=== PATIENT | male | born 1980 | race Caucasian/White ===

== ENCOUNTER → 2023-01-13 09:06 | Outpatient (BNVA) | payer MEDICAID, SELFPAY | PROVIDERS: Visit Provider Emergency Medicine | DX: S90.02XA Contusion of left ankle, initial encounter (principal); X58.XXXA Exposure to other specified factors, initial encounter | CPT/HCPCS: 73610 ==

== ENCOUNTER → 2023-02-21 10:21 | Outpatient (BNVA) | payer MEDICAID, SELFPAY | PROVIDERS: Visit Provider Nurse Practitioner Family | DX: R35.89 Other polyuria (principal); R63.1 Polydipsia; R63.2 Polyphagia; Z11.9 Encounter for screening for infectious and parasitic diseases, unspecified; R10.12 Left upper quadrant pain; R63.4 Abnormal weight loss | CPT/HCPCS: 80053; 82962; 83690; 85025; 87177; 87209 ==

== ENCOUNTER 2023-06-24 11:37 | Emergency (ER) | payer MEDICAID, SELFPAY ==
[2023-06-24 11:41] VITALS: BP 139/97; PULSE 77; RESP 16; TEMP 36.9; O2SAT 96; BMI 22.3
--- NOTE | 2023-06-24 11:55 | W.ED.PSYCHS ---
HPI - Psych General: Chief Complaint: Psychiatric Symptoms Stated Complaint: MHE Time Seen by Provider: 06/24/23 11:42 History of Present Illness: 43-year-old male presents emergency department with complaints of feeling extremely depressed with intermittent feelings of extreme anger. He states that he recently became involved with a significant other who has a children and although he cares about her very much he seems to be very stressed he does have a history of mental health disorder but takes no medications at present. He states his family has encouraged him to come to the emergency department for evaluation and to seek additional treatment or potential medication to help control his feelings of being angry. He states he does not want to harm himself or anyone else. He has no thoughts of suicidal ideation. He states that he was incarcerated in care home until approximately 1 year ago. He denies dizziness or lightheaded feeling or chest pain. He states that he became very upset approximately 2 days ago and said in his head that he was so angry that he felt like killing someone, but did not follow-up on that or attempt to and could not identify any particular person that was the direct focus of his anger and agitation. He states that he feels his feeling depressed and being angry is causing him difficulty with his current family situation. He does appear to be very anxious and potentially hypomanic at present. Associated symptoms: Reports depression Review of Systems General: Reports: 10 or more systems reviewed and unremarkable except in HPI and below Psych: Reports: anxiety, depression and mood swings [facility] ED PFSH: Social History Smoking and tobacco/nicotine status: current every day tobacco/nicotine user cigarettes Packs smoked per day: 1 Physical Exam Narrative: EXAM NARRATIVE: Constitutional: the patient appeared well nourished and normally developed. Vital signs as documented. HENMT: Head exam is unremarkable. Neck is without jugular venous distension, thyromegaly, or carotid bruits. Carotid upstrokes are brisk bilaterally. Eye: No scleral icterus or corneal arcus noted Resp: Lungs are clear to auscultation and percussion. Cardio: Cardiac exam reveals the PMI to be normally sized and situated. Rhythm is regular. First and second heart sounds normal. No murmurs, rubs or gallops. GI: Abdominal exam reveals normal bowel sounds, no masses, no organomegaly and no aortic enlargement. Soft, nontender to palpation. No obvious palpable masses noted. No hepatomegaly appreciated. Extremity: Extremities are non-edematous and both femoral and pedal pulses are normal. Moves all extremities well, she has sensation in all extremities. Neuro: Alert and oriented x4, person, place, time and situation. Cranial nerves II through XII are grossly intact, there is no focal neurological deficits that I can appreciate at present. Motor strength in the upper and lower extremities are equal and bilateral 5/5. Psych: Cooperative, anxious appearing, normal thought process, appropriate judgment. Skin: No lesions, rashes.. Course Vital Signs: Vital signs: Vital Signs Temperature 98.4 F 06/24/23 11:41 Pulse Rate 91 06/24/23 13:26 Respiratory Rate 16 06/24/23 12:26 Blood Pressure 180/88 06/24/23 13:26 Pulse Oximetry 97 06/24/23 13:26 Oxygen Delivery Me thod Room Air 06/24/23 12:26 MDM - Psych Medical Decision Making Physical exam completed and documented, laboratory evaluation reviewed, given the patient's presenting symptoms I do not feel that he is medically appropriate for inpatient placement I have contacted the crisis psychiatric intervention center and they have advised that they would see him upon discharge. I discussed this with the patient and he stated that he would immediately go there and receive their evaluation and what ever treatments they indicated on an outpatient basis. Medical Records I reviewed the patient's medical records. Lab Data I reviewed the patient's lab results. 06/24/23 12:55 06/24/23 12:55 Laboratory Results WBC 5.90 10^3/uL (3.29-11.43) 06/24/23 12:55 RBC 4.97 10^6/uL (3.85-5.65) 06/24/23 12:55 Hgb 13.90 g/dL (11.27-16.99) 06/24/23 12:55 Hct 42.7 % (37-53) 06/24/23 12:55 MCV 85.9 fl (82-101) 06/24/23 12:55 MCH 28.0 pg (27-33) 06/24/23 12:55 MCHC 32.6 g/dL (30-55) 06/24/23 12:55 RDW 13.5 % (12.1-15.1) 06/24/23 12:55 Plt Count 240 10^3/cmm (157-399) 06/24/23 12:55 MPV 9.7 fL (7.4-10.4) 06/24/23 12:55 Neut % (Auto) 64.6 % 06/24/23 12:55 Lymph % (Auto) 26.9 % 06/24/23 12:55 [place] % (Auto) 7.1 % 06/24/23 12:55 Eos % (Auto) 0.7 % 06/24/23 12:55 Baso % (Auto) 0.5 % 06/24/23 12:55 Neut # (Auto) 3.81 10^3/uL (1.8-7.7) 06/24/23 12:55 Lymph # (Auto) 1.6 10^3/uL (0.8-4.8) 06/24/23 12:55 [place] # (Auto) 0.4 10^3/uL (0.2-0.9) 06/24/23 12:55 Eos # (Auto) 0.0 10^3/uL (0.0-0.8) 06/24/23 12:55 Baso # (Auto) 0.0 10^3/uL (0.0-0.1) 06/24/23 12:55 Nucleated RBC % (auto) 0 % 06/24/23 12:55 Nucleated RBCs # 0.0 /100WBC 06/24/23 12:55 Sodium 137 mmol/L (136-145) 06/24/23 12:55 Potassium 4.0 mmol/L (3.5-5.1) 06/24/23 12:55 Chloride 100 mmol/L (98-107) 06/24/23 12:55 Carbon Dioxide 28 mmol/L (22-29) 06/24/23 12:55 Anion Gap 13.0 (5-19) 06/24/23 12:55 BUN 8 mg/dL (6-20) 06/24/23 12:55 Creatinine 0.8 mg/dL (0.7-1.2) 06/24/23 12:55 GFR Calculation 106.5 mL/min (90-130) 06/24/23 12:55 Glucose 91 mg/dL (65-115) 06/24/23 12:55 Calculated Osmolality 282 mOsm/kg (285-295) L 06/24/23 12:55 Calcium 9.3 mg/dL (8.5-10.5) 06/24/23 12:55 Total Bilirubin 0.5 mg/dL (0.15-1.2) 06/24/23 12:55 AST 26 U/L (0-40) 06/24/23 12:55 ALT 25 U/L (0-41) 06/24/23 12:55 Alkaline Phosphatase 59 U/L (40-130) 06/24/23 12:55 Total Protein 7.4 g/dL (6.6-8.7) 06/24/23 12:55 Albumin 4.8 g/dL (3.5-5.2) 06/24/23 12:55 Globulin 2.6 g/dL (1.3-4.6) 06/24/23 12:55 Urine Color Yellow (Yellow) 06/24/23 12:32 Urine Appearance Clear (CLEAR) 06/24/23 12:32 Urine pH 8 (5-7) H 06/24/23 12:32 Ur Specific [place] 1.005 (1.005-1.030) 06/24/23 12:32 Urine Protein Neg (Negative) 06/24/23 12:32 Urine Glucose (UA) Norm (Normal) 06/24/23 12:32 Urine Ketones Negative (Negative) 06/24/23 12:32 Urine Blood Neg (Negative) 06/24/23 12:32 Urine Nitrate Negative (Negative) 06/24/23 12:32 Urine Bilirubin Neg (Negative) 06/24/23 12:32 Prot Sulfosalicylic Acd Negative (Negative) 06/24/23 12:32 Urine Urobilinogen Norm mg/dL (Negative) 06/24/23 12:32 Ur Leukocyte Esterase Negative (Negative) 06/24/23 12:32 Salicylates 2.0 mg/dL (3-10) L 06/24/23 12:55 Urine Opiates Screen Negative ng/mL (Negative) 06/24/23 12:32 Acetaminophen < 5.0 ug/mL (10-30) L 06/24/23 12:55 Ur Barbiturates Screen Negative ng/mL (Negative) 06/24/23 12:32 Ur Phencyclidine Scrn Negative ng/mL (Negative) 06/24/23 12:32 Ur Amphetamines Screen Negative ng/mL (Negative) 06/24/23 12:32 U Benzodiazepines Scrn Negative ng/mL (Negative) 06/24/23 12:32 Urine Cocaine Screen Negative ng/mL (Negative) 06/24/23 12:32 U Marijuana (THC) Screen Positive ng/mL (Negative) H 06/24/23 12:32 Ethyl Alcohol < 10 mg/dL (0-10) 06/24/23 12:55 No radiology studies performed this visit Discharge Plan Discharge Patient Disposition: Home Clinical Impression: Depression, Mood and affect disturbance Condition: Stable Prescriptions: No Action No Known Home Medications Discharge Orders: Discharge ED (Routine); Ordered 06/24/23 Ordered By: Robin Chen Discharge Diet: Advance as tolerated Discharge Activity: Resume usual activity Patient Instructions: Opioid Safety, Pain Management Activity Restrictions/Additional Instructions: Activity Restrictions/Additional Instructions: Thank you for choosing [facility] for your healthcare needs today. Please realize that you were seen in the Emergency Department and that we are providing you with an emergency medical screening exam and this may not be complete and all inclusive of all the testing and or medical work-up that you may need to determine your ailment or severity of your illness. It is very important that you follow-up as instructed with your Primary care provider or Specialist for additional evaluation and to discuss your medical treatment plan. You may return to the Emergency Department should you have concerns or if your condition changes or worsens in any way. Coding Level of Care Code ED Clamp Remover for Jason Cortes
[2023-06-24 12:26] VITALS: BP 151/67; PULSE 57; RESP 16; O2SAT 98
[2023-06-24 12:36] LABS: Add Urine Microscopic? NO; Charge for UA Resulting for Rev
[2023-06-24 12:46] LABS: Amphetamines Screen Urine Negative (Negative); Barbiturates Screen Urine Negative (Negative); Benzodiazepines Screen Urine Negative (Negative); Cocaine Screen Urine Negative (Negative); Opiate Screen Urine Negative (Negative); PCP Screen Urine Negative (Negative); THC Screen Urine Positive (Negative)
--- NOTE | 2023-06-24 12:48 | ECG_ITS ---
[facility] Test Date: 2023-06-24 Pat Name: Figueroa Marie Department: Room: Gender: Male Biotechnologist: : 1980 Requested By: Robin Chen Order Number: [id number] Purvis MD: Fede Trejo M.D. Measurements Intervals [place] Rate: 56 P: 85 OR: 164 QRS: 81 QRSD: 82 T: 79 QT: 394 QTc: 382 Interpretive Statements SINUS BRADYCARDIA No previous ECG available for comparison Electronically Signed On 06-24-2023 19:37:43 CDT by Fede Trejo M.D. [id number]
[2023-06-24 12:52] LABS: Bilirubin Urine Neg (Negative); Blood Urine Neg (Negative); Glucose Urine UA Norm (Normal); Ketones Urine Negative (Negative); Leukocyte Esterase Urine Negative (Negative); Nitrate Urine Negative (Negative); Protein Urine Neg (Negative); Specific Gravity, Urine 1.005 (1.005-1.030); Sulfosalicylic Acid Urine Negative (Negative); Urine Appearance Clear (CLEAR); Urine Color Yellow (Yellow); Urobilinogen Urine Norm (Negative); pH Urine 8 (5-7)
[2023-06-24 13:01] LABS: Basophils % 0.5 %; Eosinophils % 0.7 %; Hematocrit 42.7 % (37-53); Lymphocytes # 1.6 10^3/uL (0.8-4.8); Lymphocytes % 26.9 %; Mean Corpuscular HGB Conc 32.6 g/dL (30-55); Mean Corpuscular Volume 85.9 fl (82-101); Mean Platelet Volume 9.7 fL (7.4-10.4); Monocytes # 0.4 10^3/uL (0.2-0.9); Monocytes % 7.1 %; Neutrophils # 3.81 10^3/uL (1.8-7.7); Neutrophils % 64.6 %; Nucleated Red Blood Cells % 0 %; Platelet Count 240 10^3/cmm (157-399); Red Blood Count 4.97 10^6/uL (3.85-5.65); Red Cell Distribution Width 13.5 % (12.1-15.1)
[2023-06-24 13:22] LABS: Alanine Aminotransferase 25 U/L (0-41); Albumin Level 4.8 g/dL (3.5-5.2); Alkaline Phosphatase 59 U/L (40-130); Aspartate Amino Transferase 26 U/L (0-40); Blood Urea Nitrogen 8 mg/dL (6-20); Calcium 9.3 mg/dL (8.5-10.5); Carbon Dioxide 28 mmol/L (22-29); Chloride 100 mmol/L (98-107); Globulin 2.6 g/dL (1.3-4.6); Glomerular Filtration Rate 106.5 mL/min (90-130); Glucose 91 mg/dL (65-115); Osmolality Calculated 282 mOsm/kg (285-295); Sodium 137 mmol/L (136-145); Total Bilirubin 0.5 mg/dL (0.15-1.2); Total Protein 7.4 g/dL (6.6-8.7)
[2023-06-24 13:23] LABS: Acetaminophen < 5.0 ug/mL (10-30); Alcohol Level < 10 mg/dL (0-10)
[2023-06-24 13:26] VITALS: BP 180/88; PULSE 91; O2SAT 97
== END 2023-06-24 13:28 | disposition home or self-care (01) ==
PROVIDERS: Emergency Provider Internal Medicine
DX: F32.A Depression, unspecified (principal); F39 Unspecified mood [affective] disorder; F17.210 Nicotine dependence, cigarettes, uncomplicated
CPT/HCPCS: 36415; 80053; 80306; 80307; 81003; 85025; 93005; 99284

== ENCOUNTER 2023-06-24 15:13 | Inpatient (IN) | payer MEDICAID, SELFPAY ==
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
[2023-06-24 17:02] VITALS: BP 125/58; PULSE 62; RESP 18; O2SAT 96
[2023-06-24 17:16] VITALS: BP 126/72; PULSE 55; RESP 16; TEMP 36.7; O2SAT 97
[2023-06-24] MEDS: nicotine 2 mg Gum BUCCAL (18:28)
[2023-06-24] MEDS: trazodone 50 mg Tablet PO (19:41)
[2023-06-24 20:04] VITALS: BP 112/67; PULSE 60; RESP 16; TEMP 36.8; O2SAT 98
[2023-06-25 06:00] VITALS: BP 122/80; PULSE 63; RESP 16; TEMP 36.5; O2SAT 98
[2023-06-25] MEDS: nicotine 21 mg Patch 1 PATCH TRANSDERMA (07:41)
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
[2023-06-25 09:31] LABS: Basophils % 0.6 %; Eosinophils # 0.1 10^3/uL (0.0-0.8); Eosinophils % 1.7 %; Hematocrit 43.3 % (37-53); Lymphocytes # 1.4 10^3/uL (0.8-4.8); Lymphocytes % 29.8 %; Mean Corpuscular HGB Conc 31.4 g/dL (30-55); Mean Corpuscular Hemoglobin 27.7 pg (27-33); Mean Corpuscular Volume 88.2 fl (82-101); Mean Platelet Volume 10.6 fL (7.4-10.4); Monocytes # 0.4 10^3/uL (0.2-0.9); Monocytes % 8.6 %; Neutrophils # 2.82 10^3/uL (1.8-7.7); Neutrophils % 59.1 %; Nucleated Red Blood Cells % 0 %; Platelet Count 230 10^3/cmm (157-399); Red Blood Count 4.91 10^6/uL (3.85-5.65); Red Cell Distribution Width 13.7 % (12.1-15.1); White Blood Count 4.77 10^3/uL (3.29-11.43)
[2023-06-25 09:51] LABS: Blood Urea Nitrogen 11 mg/dL (6-20); Calcium 9.1 mg/dL (8.5-10.5); Carbon Dioxide 26 mmol/L (22-29); Chloride 104 mmol/L (98-107); Glucose 88 mg/dL (65-115); Osmolality Calculated 287 mOsm/kg (285-295); Sodium 139 mmol/L (136-145)
[2023-06-25] MEDS: ARIPiprazole 10 mg Tablet PO (10:25)
[2023-06-25 10:27] LABS: Anion Gap 13.7 (5-19); Potassium 4.7 mmol/L (3.5-5.1)
--- NOTE | 2023-06-25 10:36 | PC.NURSE ---
patient removed chirag patch at 0950; patient states that it is doing nothing for me .
[2023-06-25 14:00] VITALS: BP 127/72; PULSE 72; RESP 16; TEMP 36.7; O2SAT 95
[2023-06-25] MEDS: nicotine 2 mg Gum BUCCAL ×2 (15:06→20:11)
[2023-06-25] MEDS: trazodone 50 mg Tablet PO (19:59)
[2023-06-25 20:03] VITALS: BP 128/68; PULSE 68; RESP 18; TEMP 36.4; O2SAT 95
[2023-06-26 06:00] VITALS: BP 142/87; PULSE 69; RESP 16; TEMP 36.8; O2SAT 97
--- NOTE | 2023-06-26 07:32 | P.NPUPN_ITS ---
Subjective NPU Subjective: Patient presented today reporting that he is feeling better with the Abilify. He is endorsing positivity and missing his 3-month-old baby. He reports missing all the kids and being hopeful that he can discharge at the beginning of the week. We discussed working with the social work team tomorrow to make sure he has appropriate follow-up and considering discharge once those things are in place. Mental Status Exam MSE Comments: This is a well-nourished, well-developed, white male, in hospital scrubs, with adequate grooming and eye contact. Significant tattooing on exposed skin. No abnormal movements, except for mild psychomotor agitation. Cooperative with exam in no acute distress. Speech was slightly decreased volume and normal rate. Mood described as good/better than yesterday; affect slightly elevated. Thought process, organized. Thought content: patient denied any current suicidal or homicidal ideation, there were no delusions reported or noted, patient denied any auditory or visual hallucinations. Attention, concentration, and memory appeared intact, but none were formally tested. Alert and oriented times three. Insight and judgment appear fair. Impulse control is impaired. Vitals/I&O/Wt Last Vital Signs Temp 98.2 F 06/26/23 06:00 Pulse 69 06/26/23 06:00 Resp 16 06/26/23 06:00 BP 142/87 06/26/23 06:00 Pulse Ox 97 06/26/23 06:00 O2 Del Method Room Air 06/26/23 06:00 Weight last 48 hrs Weight 70.931 kg Data NPU 06/25/23 08:44 06/25/23 08:44 A&P Assessment and plan (1) PTSD (post-traumatic stress disorder): (2) Major depressive disorder, recurrent: Plan This is a 43-year-old, white male, with a long history of trauma and mental health issues, and genetic loading for mental health and addiction issues, who presents with active cannabis use but otherwise no active addiction and significant mood dysregulation and depression, open to medications. 1.? Started 10 mg of Abilify for mood stabilization first, given concerns for possible bipolar II or cluster B dysregulation. Will likely follow with an SSRI. 2.? Encourage individual, group, and milieu therapy. 3.? Continue q-15-minute checks for safety. 4.? Recommend sober living treatment at the highest level of care to which the patient is willing to commit. Involuntary Hold Information 96 Hour Hold: 96 Hour Involuntary Admission: No Attestations NPU 2 Medical Necessity Statement*: Inpatient hospitalization is medically necessary and the clinically appropriate intervention, at this time. We will monitor medications and make changes as indicated. Likely length of stay is 1-3 days. Coding Level of Care Code Acute Code for [facility] Fwd Diagnoses PTSD (post-traumatic stress disorder) F43.10 Major depressive disorder, recurrent F33.9
[2023-06-26] MEDS: ARIPiprazole 10 mg Tablet PO (07:40)
[2023-06-26] MEDS: nicotine 2 mg Gum BUCCAL ×2 (07:40→10:58)
[2023-06-26] MEDS: OLANZapine 5 mg ODT PO (11:30)
[2023-06-26 13:43] VITALS: BP 108/65; PULSE 54; RESP 17; TEMP 36.8; O2SAT 98
[2023-06-26] MEDS: ondansetron 4 MG Tablet PO (18:23)
--- NOTE | 2023-06-26 18:24 | PC.NURSE ---
administered ondansetron 4mg PO to patient for nausea/vomiting. Patient vomited after dinner. Will continue to monitor
[2023-06-26] MEDS: trazodone 50 mg Tablet PO (19:38)
[2023-06-26 20:38] VITALS: BP 126/77; PULSE 80; RESP 17; TEMP 36.5; O2SAT 98
[2023-06-27] MEDS: promethazine 25 mg Tablet PO ×2 (03:13→19:56)
[2023-06-27 06:00] VITALS: BP 125/60; PULSE 57; RESP 16; TEMP 37; O2SAT 98
[2023-06-27] MEDS: ARIPiprazole 10 mg Tablet PO (08:51)
[2023-06-27] MEDS: ondansetron 4 MG Tablet PO (10:06)
[2023-06-27] MEDS: nicotine 2 mg Gum BUCCAL (13:20)
[2023-06-27 14:00] VITALS: BP 110/72; PULSE 57; RESP 15; TEMP 36.8; O2SAT 96
[2023-06-27] MEDS: ibuprofen 600 mg Tablet PO (17:01)
--- NOTE | 2023-06-27 17:44 | P.NPUPN_ITS ---
Mental Status Exam MSE Comments: This is a well-nourished, well-developed, white male, in hospital scrubs, with appropriate grooming and eye contact. Significant tattooing on exposed skin. No abnormal movements. Cooperative with exam in no acute distress. Speech was slightly decreased volume and normal rate. Mood described as good; affect congruent. Thought process, organized. Thought content: patient denied any c urrent suicidal or homicidal ideation, there were no delusions reported or noted, patient denied any auditory or visual hallucinations. Attention, concentration, and memory appeared intact, but none were formally tested. Alert and oriented times three. Insight and judgment appear fair. Impulse control is improving. Vitals/I&O/Wt Last Vital Signs Temp 98.1 F 06/27/23 20:07 Pulse 60 06/27/23 20:07 Resp 16 06/27/23 20:07 BP 146/75 06/27/23 20:07 Pulse Ox 96 06/27/23 20:07 O2 Del Method Room Air 06/27/23 06:00 Weight last 48 hrs Weight 70.931 kg Data NPU 06/25/23 08:44 06/25/23 08:44 A&P Assessment and plan (1) PTSD (post-traumatic stress disorder): (2) Major depressive disorder, recurrent: Plan This is a 43-year-old, white male, with a long history of trauma and mental health issues, and genetic loading for mental health and addiction issues, who presents with active cannabis use but otherwise no active addiction and significant mood dysregulation and depression, open to medications. 1.? Started 10 mg of Abilify for mood stabilization first, given concerns for possible bipolar II or cluster B dysregulation. Will recommend a SSRI for outpatient treatment team to consider. 2.? Encourage individual, group, and milieu therapy. 3.? Continue q-15-minute checks for safety. 4.? Recommend sober living treatment at the highest level of care to which the patient is willing to commit. Involuntary Hold Information 96 Hour Hold: 96 Hour Involuntary Admission: No Attestations NPU Medical Necessity Statement*: Inpatient hospitalization is medically necessary and the clinically appropriate intervention, at this time. We will monitor medications and make changes as indicated. Likely length of stay is 1-3 days. Coding Level of Care Code Acute Code for [facility] Fwd Diagnoses PTSD (post-traumatic stress disorder) F43.10 Major depressive disorder, recurrent F33.9
[2023-06-27] MEDS: trazodone 50 mg Tablet PO (19:56)
[2023-06-27 20:07] VITALS: BP 146/75; PULSE 60; RESP 16; TEMP 36.7; O2SAT 96
[2023-06-28 06:00] VITALS: BP 151/82; PULSE 74; RESP 16; TEMP 36.6; O2SAT 96
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
[2023-06-28 07:39] VITALS: BP 151/82; PULSE 74; RESP 16; TEMP 36.6; O2SAT 96
[2023-06-28] MEDS: ARIPiprazole 10 mg Tablet PO (09:48)
== END 2023-06-28 10:00 | disposition home or self-care (01) | DRG 885 ==
LOC: ER 15:37 → NP 15:56
PROVIDERS: Admitting Provider Psychiatry & Neurology Psychiatry; Emergency Provider Internal Medicine; Visit Provider Psychiatry & Neurology Psychiatry
DX: F33.9 Major depressive disorder, recurrent, unspecified (principal); F43.10 Post-traumatic stress disorder, unspecified; F17.210 Nicotine dependence, cigarettes, uncomplicated; Z63.0 Problems in relationship with spouse or partner; Z59.02 Unsheltered homelessness; Z86.19 Personal history of other infectious and parasitic diseases
CPT/HCPCS: 36415; 80048; 85025; 97165; 99285; Q0162; Q0169

== ENCOUNTER 2023-08-01 21:31 | Inpatient (IN) | payer MEDICAID, SELFPAY ==
[2023-08-01 21:33] VITALS: BMI 23.0
--- NOTE | 2023-08-01 21:37 | W.ED.PSYCHS ---
HPI - Psych General: Chief Complaint: Psychiatric Symptoms Stated Complaint: SI Time Seen by Provider: 08/01/23 21:34 Source: patient Mode of arrival: ambulatory Limitations: no limitations History of Present Illness: 43-year-old male who is here with EMS. He states he was an argument with his became infuriated and did cut his left wrist in an attempt to kill himself. He was admitted here a month ago for suicidal ideation. He states that he just feels hopeless and is extremely upset. He denies any worsening or improving factors. Associated symptoms: Reports depression and suicidal ideation Review of Systems Const: Denies: fever(s), chills, body aches or change in appetite ENMT: Denies: throat pain or dental pain Card: Denies: chest pain Resp: Denies: dyspnea GI: Denies: abdominal pain, nausea, vomiting or diarrhea Musc: Denies: neck pain or back pain Skin/Breast: Denies: rash Neuro: Denies: headache(s) Psych: Reports: depression and suicidal ideation [facility] ED PFSH: Medical History Depression Social History Smoking and tobacco/nicotine status: current every day tobacco/nicotine user cigarettes Packs smoked per day: 1 Physical Exam Const: COMMON NORMALS: patient oriented x3 HENMT: COMMON NORMALS: normocephalic and atraumatic HEAD & SCALP: normocephalic and atraumatic Eye: COMMON NORMALS: Equal, round and reactive pupils present and EOMs intact bilaterally PUPIL: Yes Equal, round and reactive pupils present Neck/C-Spine: COMMON NORMALS: full ROM and supple Chest: COMMONS NORMALS: normal inspection of the chest Resp: COMMON NORMALS: normal respiratory effort Cardio: COMMON NORMALS: regular rate, regular rhythm and No murmurs present (Cardio) RATE: regular rate RHYTHM: regular rhythm Extremity: COMMON NORMALS: full ROM NARRATIVE EXTREMITY EXAM: 4 cm laceration over the left wrist bleeding controlled no deep structures involved Neuro: COMMON NORMALS: patient oriented x3, moves all extremities and no focal motor deficits Psych: COMMON NORMALS: mental status grossly normal, Normal thought process present and cooperative THOUGHT PROCESS: Normal thought process present THOUGHT CONTENT: Yes Suicidality present Skin: COMMON NORMALS: no rashes or lesions noted GENERAL SKIN EXAM: no rashes or lesions noted Procedures Laceration Laceration 1: Site: upper extremity Side (If applicable): left Size (cm): 3 Description: linear Depth: simple, single layer Pre-repair: wound explored, irrigated extensively and deep structures intact Skin layer closed with: other (dermabond) Course Vital Signs: Vital signs: Vital Signs Pulse Rate 67 08/01/23 21:43 Respiratory Rate 18 08/01/23 21:43 Blood Pressure 137/85 08/01/23 21:43 Pulse Oximetry 97 08/01/23 21:43 Oxygen Delivery Me thod Room Air 08/01/23 21:43 MDM - Psych Medical Decision Making Patient presents for suicidal ideation he is also cut his left wrist and attempt to kill himself he is calm cooperative now I did Dermabond his wrist he had no major injuries from the laceration spoke to Dr. Teixeira patient is medically cleared will admit to psychiatric [facility]. Medical Records I reviewed the patient's medical records. Lab Data I reviewed the patient's lab results. 08/01/23 10:14 08/01/23 20:14 Laboratory Results WBC 11.79 10^3/uL (3.29-11.43) H 08/01/23 10:14 RBC 4.63 10^6/uL (3.85-5.65) 08/01/23 10:14 Hgb 13.00 g/dL (11.27-16.99) 08/01/23 10:14 Hct 40.4 % (37-53) 08/01/23 10:14 MCV 87.3 fl (82-101) 08/01/23 10:14 MCH 28.1 pg (27-33) 08/01/23 10:14 MCHC 32.2 g/dL (30-55) 08/01/23 10:14 RDW 13.3 % (12.1-15.1) 08/01/23 10:14 Plt Count 245 10^3/cmm (157-399) 08/01/23 10:14 MPV 10.1 fL (7.4-10.4) 08/01/23 10:14 Neut % (Auto) 80.9 % 08/01/23 10:14 Lymph % (Auto) 12.2 % 08/01/23 10:14 [place] % (Auto) 5.5 % 08/01/23 10:14 Eos % (Auto) 0.8 % 08/01/23 10:14 Baso % (Auto) 0.3 % 08/01/23 10:14 Neut # (Auto) 9.52 10^3/uL (1.8-7.7) H 08/01/23 10:14 Lymph # (Auto) 1.4 10^3/uL (0.8-4.8) 08/01/23 10:14 [place] # (Auto) 0.7 10^3/uL (0.2-0.9) 08/01/23 10:14 Eos # (Auto) 0.1 10^3/uL (0.0-0.8) 08/01/23 10:14 Baso # (Auto) 0.0 10^3/uL (0.0-0.1) 08/01/23 10:14 Nucleated RBC % (auto) 0 % 08/01/23 10:14 Nucleated RBCs # 0.0 /100WBC 08/01/23 10:14 Sodium 138 mmol/L (136-145) 08/01/23 20:14 Potassium 3.7 mmol/L (3.5-5.1) 08/01/23 20:14 Chloride 101 mmol/L (98-107) 08/01/23 20:14 Carbon Dioxide 27 mmol/L (22-29) 08/01/23 20:14 Anion Gap 13.7 (5-19) 08/01/23 20:14 BUN 16 mg/dL (6-20) 08/01/23 20:14 Creatinine 1.0 mg/dL (0.7-1.2) 08/01/23 20:14 GFR Calculation 82.3 mL/min (90-130) L 08/01/23 20:14 Glucose 107 mg/dL (65-115) 08/01/23 20:14 Calculated Osmolality 288 mOsm/kg (285-295) 08/01/23 20:14 Calcium 9.3 mg/dL (8.5-10.5) 08/01/23 20:14 Total Bilirubin 0.2 mg/dL (0.15-1.2) 08/01/23 20:14 AST 18 U/L (0-40) 08/01/23 20:14 ALT 11 U/L (0-41) 08/01/23 20:14 Alkaline Phosphatase 62 U/L (40-130) 08/01/23 20:14 Total Protein 7.4 g/dL (6.6-8.7) 08/01/23 20:14 Albumin 4.7 g/dL (3.5-5.2) 08/01/23 20:14 Globulin 2.7 g/dL (1.3-4.6) 08/01/23 20:14 Salicylates < 0.3 mg/dL (3-10) L 08/01/23 20:14 Acetaminophen < 5.0 ug/mL (10-30) L 08/01/23 20:14 Ethyl Alcohol < 10 mg/dL (0-10) 08/01/23 20:14 No radiology studies performed this visit Discharge Plan Discharge Patient Disposition: Admitted As Inpatient Clinical Impression: Suicidal ideation Laceration of left wrist Qualifiers: Encounter type: initial encounter Qualified Code(s): S61.512A - Laceration without foreign body of left wrist, initial encounter Condition: Stable Coding Level of Care Code ED Chemical Production Engineer for Jason Cortes
[2023-08-01 21:43] VITALS: BP 137/85; PULSE 67; RESP 18; O2SAT 97
[2023-08-01 22:29] LABS: Basophils % 0.3 %; Eosinophils # 0.1 10^3/uL (0.0-0.8); Eosinophils % 0.8 %; Hematocrit 40.4 % (37-53); Lymphocytes # 1.4 10^3/uL (0.8-4.8); Lymphocytes % 12.2 %; Mean Corpuscular HGB Conc 32.2 g/dL (30-55); Mean Corpuscular Hemoglobin 28.1 pg (27-33); Mean Corpuscular Volume 87.3 fl (82-101); Mean Platelet Volume 10.1 fL (7.4-10.4); Monocytes # 0.7 10^3/uL (0.2-0.9); Monocytes % 5.5 %; Neutrophils # 9.52 10^3/uL (1.8-7.7); Neutrophils % 80.9 %; Nucleated Red Blood Cells % 0 %; Platelet Count 245 10^3/cmm (157-399); Red Blood Count 4.63 10^6/uL (3.85-5.65); Red Cell Distribution Width 13.3 % (12.1-15.1); White Blood Count 11.79 10^3/uL (3.29-11.43)
[2023-08-01 22:37] LABS: Alanine Aminotransferase 11 U/L (0-41); Albumin Level 4.7 g/dL (3.5-5.2); Alkaline Phosphatase 62 U/L (40-130); Anion Gap 13.7 (5-19); Aspartate Amino Transferase 18 U/L (0-40); Blood Urea Nitrogen 16 mg/dL (6-20); Calcium 9.3 mg/dL (8.5-10.5); Carbon Dioxide 27 mmol/L (22-29); Chloride 101 mmol/L (98-107); Globulin 2.7 g/dL (1.3-4.6); Glomerular Filtration Rate 82.3 mL/min (90-130); Glucose 107 mg/dL (65-115); Osmolality Calculated 288 mOsm/kg (285-295); Potassium 3.7 mmol/L (3.5-5.1); Sodium 138 mmol/L (136-145); Total Bilirubin 0.2 mg/dL (0.15-1.2); Total Protein 7.4 g/dL (6.6-8.7)
[2023-08-01 22:39] LABS: Acetaminophen < 5.0 ug/mL (10-30); Alcohol Level < 10 mg/dL (0-10); Salicylate < 0.3 mg/dL (3-10)
[2023-08-01 23:02] LABS: Amphetamines Screen Urine Negative (Negative); Barbiturates Screen Urine Negative (Negative); Benzodiazepines Screen Urine Negative (Negative); Cocaine Screen Urine Negative (Negative); Opiate Screen Urine Negative (Negative); PCP Screen Urine Negative (Negative); THC Screen Urine Positive (Negative)
[2023-08-01 23:36] VITALS: BP 112/76; PULSE 60; RESP 20; TEMP 36.4; O2SAT 99
[2023-08-02] MEDS: trazodone 50 mg Tablet PO ×2 (00:05→20:18)
[2023-08-02 06:00] VITALS: PULSE 73; RESP 18; O2SAT 98
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
[2023-08-02] MEDS: ARIPiprazole 10 mg Tablet PO (10:05)
[2023-08-02 14:00] VITALS: BP 101/47; PULSE 73; RESP 14; TEMP 36.6; O2SAT 98
[2023-08-02] MEDS: ibuprofen 600 mg Tablet PO (17:33)
[2023-08-02 20:02] VITALS: BP 118/66; PULSE 66; RESP 16; TEMP 36.3; O2SAT 98
[2023-08-03 06:00] VITALS: BP 91/50; PULSE 79; RESP 17; O2SAT 98
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
[2023-08-03] MEDS: ARIPiprazole 10 mg Tablet PO (08:23)
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
[2023-08-03] MEDS: diphenhydrAMINE 50 mg/mL SDV 1mL IM (13:10)
[2023-08-03] MEDS: haloperidol inj 5 mg/mL INJ 1 mL IM (13:11)
[2023-08-03] MEDS: LORazepam 2 mg/mL INJ 1 mL IM (13:11)
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
[2023-08-03 14:00] VITALS: BP 103/62; PULSE 63; RESP 13; O2SAT 97
--- NOTE | 2023-08-03 19:52 | PC.NURSE ---
pt ref vs resp documented
[2023-08-03] MEDS: trazodone 50 mg Tablet PO (21:39)
[2023-08-04] MEDS: ARIPiprazole 10 mg Tablet PO (08:16)
[2023-08-04] MEDS: nicotine 2 mg Gum BUCCAL ×2 (13:13→17:48)
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
[2023-08-04 14:00] VITALS: BP 115/70; PULSE 61; RESP 13; TEMP 36.8; O2SAT 98
[2023-08-04] MEDS: ARIPiprazole 10 mg Tablet 5 MG PO (16:21)
[2023-08-04] MEDS: mirtazapine 15 mg Tablet PO (20:17)
[2023-08-04] MEDS: trazodone 50 mg Tablet PO (20:17)
[2023-08-04] MEDS: nicotine 4 mg lozenge MUCOUS MEM (20:17)
[2023-08-04 20:37] VITALS: BP 118/75; PULSE 83; RESP 18; TEMP 36.4; O2SAT 99
[2023-08-05] MEDS: ARIPiprazole 10 mg Tablet 15 MG PO (08:42)
[2023-08-05] MEDS: nicotine 2 mg Gum BUCCAL (08:58)
[2023-08-05] MEDS: nicotine 4 mg lozenge MUCOUS MEM ×2 (11:00→15:40)
[2023-08-05 15:13] VITALS: BP 118/75; PULSE 83; RESP 18; TEMP 36.4; O2SAT 99
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
[2023-08-05] MEDS: ibuprofen 600 mg Tablet PO (15:31)
== END 2023-08-05 16:30 | disposition home or self-care (01) | DRG 882 ==
LOC: ER 22:12 → NP 22:55
PROVIDERS: Admitting Provider Psychiatry & Neurology Psychiatry; Emergency Provider Emergency Medicine; Visit Provider Psychiatry & Neurology Psychiatry
DX: F43.10 Post-traumatic stress disorder, unspecified (principal); R45.851 Suicidal ideations; F33.9 Major depressive disorder, recurrent, unspecified; F17.210 Nicotine dependence, cigarettes, uncomplicated; F12.90 Cannabis use, unspecified, uncomplicated; Z81.8 Family history of other mental and behavioral disorders; Z81.3 Family history of other psychoactive substance abuse and dependence; Z86.19 Personal history of other infectious and parasitic diseases; Z62.812 Personal history of neglect in childhood; Z62.811 Personal history of psychological abuse in childhood; Z62.810 Personal history of physical and sexual abuse in childhood; S61.512A Laceration without foreign body of left wrist, initial encounter; X78.1XXA Intentional self-harm by knife, initial encounter; Y92.009 Unspecified place in unspecified non-institutional (private) residence as the place of occurrence of the external cause
CPT/HCPCS: 36415; 73130; 80053; 80306; 80307; 85025; 90935; 96372; 97165; 99285; J1200; J1630; J2060